=== PATIENT | male | born 1990 | race Caucasian/White ===

== ENCOUNTER 2022-07-31 09:19 | Emergency (ER) | payer OTHER ==
[~2022-07-31] VITALS: Ht 172.7 cm; Wt 88.6 kg
[2022-07-31] MEDS ORDERED: PERTUSS(ACELL),DIPH,TET VAC/PF 0.5 ML SYRINGE IM. ONE (13:30)
[2022-07-31] MEDS ORDERED: LIDOCAINE 1% 20 ML VIAL ID ONE (14:45)
[2022-07-31 15:25] VITALS: BP 149/79
== END 2022-07-31 15:52 | disposition home or self-care (01) ==
LOC: EMS 09:24
DX: S41.012A Laceration without foreign body of left shoulder, initial encounter (principal); F17.210 Nicotine dependence, cigarettes, uncomplicated; F12.90 Cannabis use, unspecified, uncomplicated; X58.XXXA Exposure to other specified factors, initial encounter; Y93.89 Activity, other specified; Y92.89 Other specified places as the place of occurrence of the external cause; Y99.8 Other external cause status
CPT/HCPCS: 99284; 12032; 70450; 73030; 90715; 90471; J3490; 12002